=== PATIENT | female | born 1955 | race Caucasian/White ===

== ENCOUNTER → 2018-03-29 | Outpatient (CLI) | payer BC ==
[2014-03-08 11:15] VITALS: BP 93/56
[~2018-03-29] MED LIST: ALPR0.5T PO; CYAN25003 SL; CYCL1DRO OP; FLUT1DIS3 IH; HYDR2TAB31 PO; LEVO100T5 PO; MOME17SP NS; PHEN37.53 PO; PROG100C15 PO; TRAM50TA PO; [UNRECOGNIZED DRUG - REMARK] SL
--- NOTE | 2018-03-29 15:18 | KCIC ---
MRI Cervical Spine Without Contrast History: Neck pain, headaches for several weeks, previous fall Technique: Multiplanar, multi sequential noncontrast MR imaging was performed of the cervical spine. Comparison: None Findings: There is motion degradation variably for all sequences. Cervical cord caliber is within normal limits without expansile signal change, difficult to accurately evaluate for cord signal change due to motion artifact. Cervical vertebral body stature is mostly preserved other than inferior C6 Schmorl's node. There is minimal grade 1 anterior spondylolisthesis at C4-C5. There is fairly advanced degenerative disc disease at C6-7 and C5-6, minimally at C4-5 and C2-C3. There is C6-7 endplate edema likely reactive/degenerative in etiology. C2-C3: Neural foramina and spinal canal are adequate. C3-C4: There is a shallow protrusion somewhat more eccentric to the right lateral recess. Central canal is adequate about 11 mm. Neural foramina are overall adequate. There is moderate to severe left facet degenerative change. C4-C5: There is severe left facet hypertrophic change. There is negligible posterior bulge. Spinal canal is adequate. Right neural foramen is adequate. There is mild left uncovertebral degenerative change. There is likely overall moderate narrowing of the left neural foramen. C5-C6: There is minimal disc osteophyte complex and bulge. Central canal is borderline about 10 mm. There is buckling of the ligamentum flavum. There is facet degenerative change. There is also uncovertebral degenerative change greater on the right. There is fairly severe right and likely mild left neural foramina compromise. C6-C7: There is minimal disc osteophyte complex and bulge. Central canal is borderline about 10 mm. There is bilateral facet degenerative change, also uncovertebral degenerative change. There is likely overall moderate right and at least mild left neural foramina compromise. C7-T1: Spinal canal and neural foramina are adequate. T1-T2: This level was not included on axial images. There is a shallow posterior protrusion without significant spinal stenosis. Impression: Exam is degraded by motion. There is no significant cervical spinal stenosis, borderline narrowing C5-6 and C6-7 as described. There is multilevel degenerative disc disease greatest at C6-7 and C5-6, mild spondylosis. Neural foramina are somewhat poorly characterized due to motion artifact, suspected narrowing as stated with more significant narrowing on the right at C5-6, likely moderate narrowing on the left at C4-C5 and on the right at C6-7.6-7. Electronically signed by: Neri Tarango MD (03/29/2018 3:14 PM) [id number]
== END | disposition home or self-care (01) ==
LOC: KCIC MRI 13:26
PROVIDERS: ATTEND Physician Assistant Medical
DX: M50.322 Other cervical disc degeneration at C5-C6 level (principal); M47.812 Spondylosis without myelopathy or radiculopathy, cervical region; M25.78 Osteophyte, vertebrae
CPT/HCPCS: 72141